=== PATIENT | male | born 1990 | race Caucasian/White ===

== ENCOUNTER 2016-11-27 18:00 | Inpatient (IN) | payer MEDICAID ==
[~2016-11-27] VITALS: Ht 170.2 cm; Wt 79.3 kg
[2016-11-27 18:15] LABS: BASOPHILS % (AUTO) 0.5 % (0.0-2.0); EOSINOPHILS % (AUTO) 0.5 % (1.0-6.0); HEMATOCRIT 46.2 % (41-53); LYMPHOCYTES # (AUTO) 1.4 K/uL (1.0-4.8); LYMPHOCYTES % (AUTO) 11.7 % (22.0-44.0); MEAN CORPUSCULAR HEMOGLOBIN 26.9 pg (26.0-34.0); MEAN CORPUSCULAR HGB CONC 32.5 G/dL (31.0-37.0); MEAN CORPUSCULAR VOLUME 83 fL (80-100); MONOCYTES # (AUTO) 0.8 K/uL (0.1-1.0); MONOCYTES % (AUTO) 6.4 % (2.0-9.0); NEUTROPHILS # (AUTO) 9.5 K/uL (1.8-7.7); NEUTROPHILS % (AUTO) 80.9 % (40.0-70.0); PLATELET COUNT (AUTO) 218 K/uL (150-450); RED BLOOD CELL COUNT(AUTO) 5.58 MIL/uL (4.50-5.90); RED CELL DISTRIBUTION WIDTH 13.9 % (11.5-14.5); WHITE BLOOD COUNT (AUTO) 11.8 K/uL (4.5-11.0)
[2016-11-27 18:26] LABS: ANION GAP 11 mmol/L (8-16); CALCIUM, TOTAL 9.3 mg/dL (8.8-10.5); CARBON DIOXIDE 28 mmol/L (22-29); CHLORIDE 100 mmol/L (98-107); CREATININE 1.21 mg/dL (0.60-1.30); GLOMERULAR FILTR. RATE CALC > 60 mL/min (>60); POTASSIUM 3.9 mmol/L (3.5-5.1); SODIUM SERUM 139 mmol/L (136-145); UREA NITROGEN, BLOOD 9 mg/dL (7-18)
[2016-11-27 18:32] LABS: ALANINE AMINOTRANSFERASE 58 U/L (12-78); ALBUMIN 4.4 g/dL (3.4-5.0); ASPARTATE AMINOTRANSFERASE 34 U/L (15-37); BILIRUBIN,TOTAL 0.5 mg/dL (0.1-1.0); TOTAL PROTEIN, SERUM 8.2 g/dL (6.4-8.2)
[2016-11-27] MEDS ORDERED: IBUPROFEN 600 MG TABLET PO ONE (19:15)
[2016-11-27] MEDS ORDERED: ZOLPIDEM TARTRATE 10 MG TABLET PO PRN (19:30)
[2016-11-27] MEDS ORDERED: HALOPERIDOL 5 MG TABLET PO PRN (19:30)
[2016-11-27] MEDS ORDERED: LORazepam 2 MG TABLET PO PRN (19:30)
[2016-11-27] MEDS ORDERED: DiphenhydrAMINE HCL 50 MG/ML VIAL IM ONE (20:30)
[2016-11-27] MEDS ORDERED: HALOPERIDOL LACTATE 5 MG/ML VIAL IM ONE (20:30)
[2016-11-27] MEDS ORDERED: LORazepam 2 MG/ML VIAL IM ONE (20:30)
[2016-11-28] MEDS ORDERED: INFLUENZA VIRUS VACCINE QVS 2016-17 (3YR+)/PF 60 MCG/0.5 ML SYRINGE IM ONE (01:15)
[2016-11-28 09:13] VITALS: BP 113/71
[2016-11-28] MEDS ORDERED: ONDANSETRON HCL 4 MG TABLET PO PRN (13:00)
[2016-11-28] MEDS ORDERED: BENZOCAINE/MENTHOL LOZENGE [8 LOZENGES/PACKET] MM PRN (13:00)
[2016-11-28] MEDS ORDERED: IBUPROFEN 600 MG TABLET PO PRN (13:00)
[2016-11-28] MEDS ORDERED: LOPERAMIDE HCL 2 MG CAPSULE PO PRN (13:00)
[2016-11-28] MEDS ORDERED: PETROLATUM,WHITE 71 GM JELLY TP PRN (13:00)
[2016-11-28] MEDS ORDERED: ACETAMINOPHEN 325 MG TABLET PO PRN (13:00)
[2016-11-28] MEDS ORDERED: MAGNESIUM HYDROXIDE SUSPENSION 30 ML UDCUP PO PRN (13:00)
[2016-11-28] MEDS ORDERED: MAG HYDROX/AL HYDROX/SIMETH ES 30 ML SUSPENSION UDCUP PO PRN (13:00)
[2016-11-28] MEDS ORDERED: BACITRACIN 28.4 GM OINTMENT TP PRN (13:00)
[2016-11-28] MEDS ORDERED: CloNIDine HCL 0.1 MG TABLET PO PRN (13:00)
[2016-11-28] MEDS ORDERED: ALBUTEROL SULFATE HFA 90 MCG/PUFF 8 GM INHALER IH PRN (13:00)
[2016-11-28 16:00] VITALS: BP 115/66
[2016-11-28] MEDS: DIVALPROEX SODIUM 500 MG DR TABLET PO SCH (16:18)
[2016-11-28] MEDS: QUEtiapine FUMARATE 25 MG TABLET PO SCH (17:53)
[2016-11-29 08:46] VITALS: BP 114/68
[2016-11-29] MEDS: QUEtiapine FUMARATE 25 MG TABLET PO SCH ×2 (09:13→17:32)
[2016-11-29] MEDS: DIVALPROEX SODIUM 500 MG DR TABLET PO SCH ×2 (09:14→17:32)
[2016-11-29 16:00] VITALS: BP 123/63
[2016-11-29] MEDS: ZOLPIDEM TARTRATE 10 MG TABLET PO PRN (20:25)
[2016-11-30 09:00] VITALS: BP 128/81
[2016-11-30] MEDS: DIVALPROEX SODIUM 500 MG DR TABLET PO SCH ×2 (09:08→17:53)
[2016-11-30] MEDS: QUEtiapine FUMARATE 25 MG TABLET PO SCH ×2 (09:13→17:53)
[2016-11-30 12:22] VITALS: BP 128/68
[2016-11-30] MEDS: ZOLPIDEM TARTRATE 10 MG TABLET PO PRN (22:26)
[2016-12-01 08:30] VITALS: BP 144/89
[2016-12-01] MEDS: DIVALPROEX SODIUM 500 MG DR TABLET PO SCH ×2 (08:32→17:00)
[2016-12-01] MEDS: QUEtiapine FUMARATE 25 MG TABLET PO SCH ×2 (08:32→17:00)
[2016-12-01 16:00] VITALS: BP 125/64
[2016-12-01 18:59] VITALS: BP 142/86
[2016-12-01] MEDS: ZOLPIDEM TARTRATE 10 MG TABLET PO PRN (20:57)
[2016-12-01] MEDS: LORazepam 2 MG TABLET PO PRN (23:06)
[2016-12-02] MEDS: LORazepam 2 MG TABLET PO PRN (08:06)
[2016-12-02] MEDS: DIVALPROEX SODIUM 500 MG DR TABLET PO SCH (08:06)
[2016-12-02] MEDS: QUEtiapine FUMARATE 25 MG TABLET PO SCH (08:06)
[2016-12-02] MEDS ORDERED: QUET25TA PO (09:52)
[2016-12-02] MEDS ORDERED: DIVA500T35 PO (09:52)
[2016-12-02 10:38] VITALS: BP 118/60
[2016-12-02 16:00] VITALS: BP 116/68
== END 2016-12-02 16:15 | disposition home or self-care (01) | DRG 750 ==
LOC: EEVIPCON 18:03 → EMS 18:03 → 3EC 21:15
PROVIDERS: ADMIT Psychiatry & Neurology Psychiatry; ATTEND Psychiatry & Neurology Psychiatry
PROC: 2W3KX1Z Immobilization of Left Finger using Splint (ICD-10-PCS; principal; 2016-11-27)
PROC: 3E0234Z Introduction of Serum, Toxoid and Vaccine into Muscle, Percutaneous Approach (ICD-10-PCS; 2016-11-28)
DX: F25.9 Schizoaffective disorder, unspecified (principal); F23 Brief psychotic disorder; F12.90 Cannabis use, unspecified, uncomplicated; G47.00 Insomnia, unspecified; S62.635A Displaced fracture of distal phalanx of left ring finger, initial encounter for closed fracture; S80.212A Abrasion, left knee, initial encounter; F17.290 Nicotine dependence, other tobacco product, uncomplicated; Y04.2XXA Assault by strike against or bumped into by another person, initial encounter; S80.211A Abrasion, right knee, initial encounter; Z56.0 Unemployment, unspecified; Z71.41 Alcohol abuse counseling and surveillance of alcoholic; Z72.89 Other problems related to lifestyle; Z91.19 Patient's noncompliance with other medical treatment and regimen; Z59.0 Homelessness; Z71.51 Drug abuse counseling and surveillance of drug abuser; Y99.8 Other external cause status; Y92.89 Other specified places as the place of occurrence of the external cause; Y93.89 Activity, other specified; Z23 Encounter for immunization
CPT/HCPCS: 29280; 90471; 96372; 99285; G0480; J1200; J1630; J2060

== ENCOUNTER 2017-08-11 14:19 | Emergency (ER) | payer MEDICAID ==
[~2017-08-11] VITALS: Ht 170.2 cm; Wt 81.8 kg
[2017-08-11 14:19] VITALS: BP 157/67
[~2017-08-11 14:19] MED LIST: DIVA500T35 PO; QUET25TA PO
[2017-08-11] MEDS ORDERED: IBUP-2071 PO (14:26)
[2017-08-11] MEDS ORDERED: ASPI-891 PO (14:26)
== END 2017-08-11 16:16 | disposition left against medical advice (07) ==
LOC: EMS 14:20
DX: M79.641 Pain in right hand (principal); F12.90 Cannabis use, unspecified, uncomplicated; Z53.21 Procedure and treatment not carried out due to patient leaving prior to being seen by health care provider

== ENCOUNTER 2017-08-28 10:15 | Emergency (ER) | payer MEDICAID, OTHER ==
[~2017-08-28] VITALS: Ht 170.2 cm; Wt 83.0 kg
[~2017-08-28 10:15] MED LIST changes: +ASPI-891 PO; -DIVA500T35 PO; +IBUP-2071 PO; -QUET25TA PO
[2017-08-28 13:00] VITALS: BP 137/88
== END 2017-08-28 13:04 | disposition home or self-care (01) ==
LOC: EMS 10:17
DX: S62.396A Other fracture of fifth metacarpal bone, right hand, initial encounter for closed fracture (principal); S62.394A Other fracture of fourth metacarpal bone, right hand, initial encounter for closed fracture; X58.XXXA Exposure to other specified factors, initial encounter; Y93.89 Activity, other specified; Y92.89 Other specified places as the place of occurrence of the external cause; Y99.8 Other external cause status
CPT/HCPCS: 99284